=== PATIENT | female | born 2005 | race Caucasian/White ===

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

== ENCOUNTER 2024-07-30 09:53 | Day surgery (SDC) | payer MEDICAID, OTHER ==
[~2024-07-30 09:53] MED LIST: Sodium Chloride 0.9% 10 ML Syringe FLUSH PRN; Sodium Chloride 0.9% 2.5 ML Syringe FLUSH PRN; Sodium Chloride 0.9% 20 ML SDV IV PRN
[2024-07-30] MEDS ORDERED: Ondansetron 4 MG/2 ML SDV ONE (10:19)
[2024-07-30] MEDS: Lactated Ringers 1,000 ML IV SCH (10:40)
[2024-07-30] MEDS: Ondansetron 4 MG/2 ML SDV IVPUSH ONE (10:40)
[2024-07-30] MEDS ORDERED: Lidocaine 2% 5 ML SDV ONE (11:48)
[2024-07-30] MEDS ORDERED: propofoL 50 ML ONE (11:48)
[2024-07-30] MEDS ORDERED: dexmedeTOMIDine HCl 200 MCG/2 ML SDV ONE (11:56)
[2024-07-30] MEDS ORDERED: Water For Injection, Sterile 20 ML ONE (11:59)
[2024-07-30] MEDS ORDERED: ePHEDrine 50 MG/ML SDV ONE (12:07)
== END 2024-07-30 13:05 | disposition home or self-care (01) ==
LOC: MW.SDS 09:53
PROVIDERS: ATTEND Surgery
DX: K20.90 Esophagitis, unspecified without bleeding (principal); K29.50 Unspecified chronic gastritis without bleeding; R63.4 Abnormal weight loss; F32.A Depression, unspecified; F17.290 Nicotine dependence, other tobacco product, uncomplicated; Z79.899 Other long term (current) drug therapy
CPT/HCPCS: 43239; 45380; 81025; J2405; J2704; J7120; 00813; J3490